=== PATIENT | male | born 1995 ===

== ENCOUNTER 2021-07-29 16:02 | Outpatient (CLI) | payer SELFPAY | END 2021-07-29 16:03 | disposition EMS.NT | LOC: EMS 16:02 | DX: M25.511 Pain in right shoulder (principal) ==

== ENCOUNTER 2021-07-30 17:04 | Emergency (ER) | payer SELFPAY ==
[2021-07-30 17:17] VITALS: BP 131/79
--- NOTE | 2021-07-30 18:27 | XRAY Report ---
PROCEDURE: Shoulder 3 View RT INDICATIONS: pain TECHNIQUE: 3 views of the shoulder were acquired. COMPARISON: None. FINDINGS: Bones: No fractures or dislocations. No suspicious bony lesions. Visualized ribs appear intact. Soft tissues: No suspicious soft tissue calcifications. IMPRESSION: No acute findings. If the patient's pain or other symptoms persist, consider further blayne luation with MRI. Reviewed by: Navi Schreiber MD on 07/30/2021 6:26 PM PST Approved by: Navi Schreiber MD on 07/30/2021 6:26 PM PST Station ID: [id number]
--- NOTE | 2021-07-30 18:39 | ED Physician Documentation ---
PD HPI UPPER EXT INJURY - Stated complaint Stated Complaint: RT SHOULDER INJ - Chief complaint Chief Complaint: Ext Problem - History obtained from History obtained from: Patient - History of Present Illness Location: Right, Shoulder Type of injury: Fall Where injury occurred: Work Timing - onset: Yesterday Timing - details: Abrupt onset, Still present Improved by: Rest, Ice, Immobilization Worsened by: Moving, Palpating Associated symptoms: Weakness. 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 He was finally attended to by medics who were able to relocate his shoulder at the scene. He comes to the emergency department today with right shoulder pain and inability to abduct his arm. He feels that his arm is about to come out of the socket with certain movements and he has pain to attempt at abduction. He is left-handed. Review of Systems Constitutional: denies: Fever Ears: denies: Ear pain Nose: denies: Congestion Throat: denies: Sore throat Cardiac: denies: Chest pain / pressure, Palpitations Respiratory: denies: Dyspnea, Cough GI: denies: Nausea, Vomiting Skin: denies: Rash Musculoskeletal: reports: Extremity pain, Joint pain. denies: Neck pain, Back pain, Extremity swelling, Joint swelling Neurologic: reports: Focal weakness (feels weak to move the right arm). denies: Generalized weakness, Numbness PD PAST MEDICAL HISTORY - Past Medical History Past Medical History: No - Allergies Allergies/Adverse Reactions: Allergies Allergy/AdvReac Type Severity Reaction Status Date / Time No Known Drug Allergies Allergy Verified 07/30/21 17:15 - Social History Does the pt smoke?: No Smoking Status: Never smoker PD ED PE NORMAL - Vitals Vital signs reviewed: Yes (hypertensive mild ) - General General: Alert and oriented X 3, No acute distress, Well developed/nourished - HEENT HEENT: Atraumatic, PERRL, EOMI - Neck Neck: Supple, no meningeal sign, No bony TTP - Respiratory Respiratory: No respiratory distress - Back Back: No CVA TTP, No spinal TTP - Derm Derm: Normal color, Warm and dry, No rash - Extremities Extremities: No deformity, Other (There is point tenderness to the anterior deltoid and to the supraspinatus. The patient is not able to move the arm into abduction. When held in abduction he is not able to fully support it when it is let go. Is able to rotate internally and externally. Distal neurovascular intact.) - Neuro Neuro: Alert and oriented X 3, fashion coordinator 2-12 intact, No motor deficit, No sensory deficit, Normal speech Eye Opening: Spontaneous Motor: Obeys Commands Verbal: Oriented GCS Score: 15 - Psych Psych: Normal mood, Normal affect Results - Vitals Vitals: Vital Signs - 24 hr 07/30/21 17:15 Temperature 36.5 C Heart Rate 97 Respiratory 16 Rate Blood Pressure 131/79 H O2 Saturation 94 Oxygen O2 Source Room air - Rads (name of study) right shoulder Radiology: Prelim report reviewed (Impression: No acute findings. If the patient's pain or other symptoms persist, consider further evaluation with MRI.), EMP read indepedently, See rad report PD MEDICAL DECISION MAKING - ED course Complexity details: reviewed results, re-evaluated patient, considered differential, d/w patient ED course: 26-year-old male with a shoulder dislocation yesterday appears to have a rotator cuff injury. He is placed into shoulder immobilizer and instructed to remove the immobilizer and move the shoulder and range of motion 4-5 times per day. I have asked patient to follow-up with orthopedics and I have given him Dr. Gallagher's number. Departure - Departure Disposition: 01 Home, Self Care Clinical Impression: Rotator cuff (capsule) sprain Qualifiers: Encounter type: initial encounter Laterality: right Qualified Code(s): S43.421A - Sprain of right rotator cuff capsule, initial encounter Shoulder dislocation Qualifiers: Encounter type: initial encounter Laterality: right Qualified Code(s): S43.004A - Unspecified dislocation of right shoulder joint, initial encounter Instructions: ED Dislocation Shoulder Redu, ED Torn Rotator Cuff Follow-Up: Jaun Gallagher MD [Provider Admit Priv/Credential] - Comments: Jaren, today it looks like you have an injury to your rotator cuff associated with this dislocation. Follow-up with the orthopedic surgeon as further treatment is likely to be necessary. In the meantime make certain you take this sling off of your shoulder 4-5 times per day and do range of motion exercises.
== END 2021-07-30 18:53 | disposition home or self-care (01) ==
LOC: ED 17:04
DX: S43.421A Sprain of right rotator cuff capsule, initial encounter (principal); S43.004A Unspecified dislocation of right shoulder joint, initial encounter; W17.81XA Fall down embankment (hill), initial encounter; Y93.89 Activity, other specified; Y99.0 Civilian activity done for income or pay
CPT/HCPCS: 99282; 99283

== ENCOUNTER 2021-08-18 09:15 | Outpatient (CLI) | payer OTHER ==
--- NOTE | 2021-08-18 09:36 | XRAY Report ---
PROCEDURE: Shoulder 1 View RT INDICATIONS: R SHOULDER PX TECHNIQUE: 'Single axillary view of the right shoulder were acquired. COMPARISON: 07/30/2021. FINDINGS: Bones: No acute fractures or dislocations. Humeral head is normally aligned with the glenoid. No camargo spicious bony lesions. Visualized ribs appear intact. Soft tissues: No suspicious soft tissue calcifications. IMPRESSION: Right shoulder without acute fracture or dislocation. If there is persistent clinical concern for internal soft tissue derangement, consider further evalua tion with MRI. Reviewed by: Juan Carlos Gomez MD on 08/18/2021 9:35 AM PST Approved by: Juan Carlos Gomez MD on 08/18/2021 9:35 AM PST Station ID: [id number]
== END 2021-08-18 23:59 | disposition home or self-care (01) ==
LOC: DI.N 09:15
PROVIDERS: ATTEND Physician Assistant
DX: M25.511 Pain in right shoulder (principal)